=== PATIENT | male | born 1980 | race Caucasian/White ===

== ENCOUNTER 2020-06-04 13:49 | Outpatient (CLI) | payer SELFPAY ==
--- NOTE | 2020-06-04 13:58 | XR_ITS ---
WS: [id number] Left ankle, 3 views, 06/04/2020 Clinical Data: LEFT ANKLE JOINT PAIN Comparison: None. Findings: No fractures or dislocations are seen. The ankle mortise is normal. The talus and calcaneus are unrem arkable. No soft tissue swelling over the medial or lateral malleolus is seen. XR/XR ankle LT min 3V* [id number] Impression: Negative left ankle.
== END 2020-06-04 13:50 | disposition home or self-care (01) ==
LOC: RADWPI 13:53
PROVIDERS: PCP Nurse Practitioner Family; Visit Provider Nurse Practitioner Family
DX: M25.572 Pain in left ankle and joints of left foot (principal)
CPT/HCPCS: 73610

== ENCOUNTER 2021-12-19 08:33 | Outpatient (CLI) | payer MEDICAID, SELFPAY ==
--- NOTE | 2021-12-19 08:40 | CT_ITS ---
WS: [id number] CT ABDOMEN AND PELVIS WITH CONTRAST HISTORY: K40.90 - Unilateral inguinal hernia, without obstruction ... TECHNIQUE: Imaging performed of the abdomen and pelvis with IV contrast. Single phase imaging of the abdomen. Coronal and sagittal reformats are submitted. All CT scans at [facility] use at [address] one of these dose optimization techniques: automated exposure control; mA and/or kV adjustment per patient size (includes targeted exams where dose is matched to clinical indication); or iterative re construction. IV CONTRAST: Omnipaque 300; 95 mL IV. Oral contrast: Yes. DLP: 1282.84 mGy.cm COMPARISON: None available. Lower thorax: Lung bases are clear. Heart is normal size. No hiatal hernia. Liver/biliary system: Normal size with no intrahepatic dilatation. Gallbladder: Normal. No gallstones or wall thickening. No pericholecystic fluid. Pancreas: Normal size pancreas and pancreatic duct. No adjacent inflammation. Spleen: Normal size spleen. No mass or infarct. Adrenal glands: Normal RIGHT adrenal gland. Well circumscribed nodule measuring 16 x 13 mm associated with the lateral limb of the LEFT adrenal gland. Hounsfield units are elevated which may be due to t he contrast enhancement. Right kidney: Normal. Left kidney: Normal. Aorta: Normal. Lymphadenopathy: None. Free fluid: None. GI tract: Nondistended stomach. No small bowel obstruction. The appendix is normal. No colon obstruct ion. Moderate constipation distal colon. No significant diverticular disease. Abdominal wall: Unremarkable abdominal wall. No hernia. Pelvis: No free fluid or adenopathy within the pelvis. Inguinal canals are patent bilaterally contain ing fat only. No inguinal hernia. Bones: Unremarkable. CT/CT abdomen pelvis w con* [id number] IMPRESSION: 1. No inguinal hernia or obstruction. 2. Normal appendix. 3. LEFT adrenal nodule measuring 16 x 13 mm. Statistically not likely a neopla sm without history of cancer. This is probably an adenoma. Further evaluation c an be obtained with a dedicated adrenal gland CT with and without contrast or M RI of the adrenal glands.
[2021-12-19] MEDS: iohexol 300 mg/mL 50 mL Btl PO (10:56)
[2021-12-19] MEDS: iohexol 300 mg/mL 100 mL Btl IV (10:56)
== END 2021-12-19 08:34 | disposition home or self-care (01) ==
LOC: RAD 08:34
PROVIDERS: PCP Nurse Practitioner Family; Visit Provider Surgery
DX: R10.31 Right lower quadrant pain (principal); E27.8 Other specified disorders of adrenal gland
CPT/HCPCS: 74177

== ENCOUNTER 2022-01-25 12:24 | Outpatient (CLI) | payer MEDICAID, SELFPAY ==
--- NOTE | 2022-01-25 12:34 | XR_ITS ---
WS: [id number] XR cervical spine 3V* [id number] REASON FOR EXAM: NECK PAIN FINDINGS: Normal lordosis of the cervical spine on the lateral view. Normal odontoid. Mild narrowing of the intervertebral disc spaces C4-C7 with small anterior osteophytes. No significant listhesis. On the lateral view of the cervical spine there is a 12 mm papillary/polypoid soft tissue density flora t projects over the supraglottic region of the airway. No cartilage abnormality is identified to acco unt for the finding. No abnormality is seen on the frontal views. XR/XR cervical spine 3V* [id number] IMPRESSION: Mild to moderate changes of degenerative spondylosis in the cervical spine as a randi. Possible supraglottic mass as above. In follow-up could repeat the lateral view of the neck and if the abnormality p ersists the patient will need more sophisticated imaging such as CT or MRI as c linically warranted.
== END 2022-01-25 12:25 | disposition home or self-care (01) ==
LOC: RAD 12:26
PROVIDERS: PCP Nurse Practitioner Family; Visit Provider Nurse Practitioner Family
DX: M54.2 Cervicalgia (principal)
CPT/HCPCS: 72040

== ENCOUNTER 2022-02-10 13:02 | Outpatient (CLI) | payer MEDICAID, SELFPAY ==
--- NOTE | 2022-02-10 13:09 | CTR_ITS ---
PROCEDURE INFORMATION: Exam: CT Neck With Contrast Exam date and time: 02/10/2022 1:24 PM Age: 41 years old Clinical indication: Abnormal findings; Abnormal radiologic study of neck; Other: Soft tissue mass; Patient HX: F/u supraglotid mass seen on xray TECHNIQUE: Imaging protocol: Computed tomography images of the neck with contrast. Radiation optimization: All CT scans at this facility use at least one of these dose optimization techniques: automated exposure control; mA and/or kV adjustment per patient size (includes targeted exams where dose is matched to clinical indication); or iterative reconstruction. Contrast material: OMNI 350; Contrast volume: 95 ml; Contrast route: INTRAVENOUS (IV); COMPARISON: CR XR cervical spine 3V* [id number] 01/25/2022 12:45 PM RADIATION DOSE METRICS: Total DLP (mGy-cm): 362.21 FINDINGS: Nasopharynx: Unremarkable. Oropharynx: Unremarkable. No significant tonsillar enlargement. Hypopharynx: Unremarkable. Larynx: Unremarkable. Normal epiglottis. Retropharyngeal space: Unremarkable. Submandibular/Parotid glands: Normal. Glands are normal in size. Thyroid: Normal. No enlarged or calcified nodules. Lymph nodes: Unremarkable. No lymphadenopathy. Trachea: Visualized trachea is unremarkable. Lungs: Unremarkable as visualized. Bones/joints: Unremarkable. No acute fracture. Soft tissues: Unremarkable. No significant soft tissue swelling. CT/CT neck w con* [id number] IMPRESSION: No acute findings. Suspected mass seen on comparison x-ray is not seen on this exam.
[2022-02-10] MEDS: iohexol 350 mg/mL 100 mL Btl IV (13:28)
== END 2022-02-10 13:03 | disposition home or self-care (01) ==
LOC: RAD 13:03
PROVIDERS: PCP Nurse Practitioner Family; Visit Provider Nurse Practitioner Family
DX: M79.9 Soft tissue disorder, unspecified (principal)
CPT/HCPCS: 70491

== ENCOUNTER → 2022-04-11 14:32 | Outpatient (BNVA) | payer MEDICAID, SELFPAY | PROVIDERS: PCP Nurse Practitioner Family; Referring Provider Nurse Practitioner Family; Visit Provider Specialist | DX: R20.0 Anesthesia of skin (principal); R20.2 Paresthesia of skin | CPT/HCPCS: 95908; 95909 ==

== ENCOUNTER → 2023-02-01 13:55 | Outpatient (BNVA) | payer MEDICAID, SELFPAY | PROVIDERS: PCP Nurse Practitioner Family; Referring Provider Nurse Practitioner Family; Visit Provider Orthopaedic Surgery | DX: M47.22 Other spondylosis with radiculopathy, cervical region (principal); M47.812 Spondylosis without myelopathy or radiculopathy, cervical region | CPT/HCPCS: 72050 ==

== ENCOUNTER 2024-01-30 11:45 | Outpatient (CLI) | payer MEDICAID, SELFPAY ==
--- NOTE | 2024-01-30 12:13 | XRR_ITS ---
PROCEDURE INFORMATION: Exam: XR Right Ribs Exam date and time: 01/30/2024 12:20 PM Age: 43 years old Clinical indication: Injury or trauma; Fall; Rib area; Blunt trauma (contusions or hematomas); Additional info: R chest pain TECHNIQUE: Imaging protocol: Radiologic exam of the right ribs. Views: 2 views. COMPARISON: CR XR cervical spine 4-5V [id number] 02/01/2023 1:56 PM FINDINGS: Bones/joints: Normal. No displaced rib fracture. No pneumothorax, hemothorax, or pleural based hematoma. Soft tissues: Normal. XR/XR ribs RT 2V* [id number] IMPRESSION: No acute findings.
== END 2024-01-30 11:46 | disposition home or self-care (01) ==
LOC: RAD 11:47
PROVIDERS: PCP Nurse Practitioner Family; Visit Provider Family Medicine
DX: R07.89 Other chest pain (principal)
CPT/HCPCS: 71100